=== PATIENT | female | born 1950 | race Caucasian/White ===

== ENCOUNTER 2023-09-14 10:28 | Inpatient (IN) | payer MEDICARE, BC ==
[~2023-09-14] VITALS: Ht 162.6 cm; Wt 58.3 kg
[2023-09-14] MEDS ORDERED: MULT-754 PO (11:49)
[2023-09-14] MEDS ORDERED: DONE10TA44 PO (11:49)
[2023-09-14] MEDS ORDERED: QUET25TA PO (11:49)
[2023-09-14] MEDS ORDERED: DIPH25TA25 PO (11:49)
[2023-09-14] MEDS ORDERED: VIT1CAPS9 PO (11:49)
[2023-09-14] MEDS ORDERED: ATOR20TA PO (11:49)
[2023-09-14] MEDS ORDERED: LEVO50TA PO (11:49)
[2023-09-14] MEDS ORDERED: CHOL200059 PO (11:49)
[2023-09-14] MEDS ORDERED: MAG HYDROX/AL HYDROX/SIMETH 30 ML UDC PO PRN (12:00)
[2023-09-14] MEDS ORDERED: ACETAMINOPHEN 325 MG TABLET PO PRN (12:00)
[2023-09-14] MEDS ORDERED: MAGNESIUM HYDROXIDE 30 ML UDC PO PRN (12:00)
[2023-09-14 16:00] VITALS: BP 134/83; TEMP 98.7; O2SAT 98
[2023-09-14] MEDS: LORAZEPAM 1 MG TABLET PO PRN (17:27)
[2023-09-14 20:17] VITALS: BP 103/68; TEMP 98; O2SAT 98
[2023-09-14] MEDS: DONEPEZIL 5 MG TABLET PO SCH (21:26)
[2023-09-14] MEDS ORDERED: ATORVASTATIN 10 MG TABLET ONE (21:41)
[2023-09-14] MEDS: ATORVASTATIN 10 MG TABLET PO SCH (21:44)
[2023-09-15 08:00] VITALS: BP 120/61; TEMP 97.9; O2SAT 95
[2023-09-15 08:09] LABS: CHOLESTEROL 174 mg/dL (<200); HDL CHOLESTEROL 102 mg/dL (40-60); LDL 57 mg/dL (0-99); TRIGLYCERIDES 33 mg/dL (30-150)
[2023-09-15] MEDS: MULTIVITAMINS,THERAGRAN 1 UDTAB TABLET PO SCH (08:16)
[2023-09-15] MEDS: LEVOTHYROXINE SODIUM 50 MCG TABLET PO SCH (08:16)
[2023-09-15] MEDS: CHOLECALCIFEROL 1,000 UNIT TABLET (VIT D3) PO SCH (08:17)
[2023-09-15 09:09] LABS: ALBUMIN 3.6 g/dL (3.4-5.0); BILIRUBIN,TOTAL 0.5 mg/dL (0.2-1.0); CALCIUM, SERUM 9.7 mg/dL (8.5-10.1); CREATININE 0.7 mg/dL (0.6-1.3); POTASSIUM 3.5 mmol/L (3.5-5.1); TOTAL PROTEIN, SERUM 7.1 g/dL (6.4-8.2)
[2023-09-15 16:00] VITALS: BP 116/76; TEMP 98; O2SAT 95
[2023-09-15] MEDS: MEMANTINE HCL 5 MG TABLET PO SCH ×2 (17:00→17:04)
[2023-09-15 20:00] VITALS: BP 123/81; TEMP 98.3; O2SAT 97
[2023-09-15] MEDS: ATORVASTATIN 10 MG TABLET PO SCH (21:22)
[2023-09-15] MEDS: DONEPEZIL 5 MG TABLET PO SCH (21:22)
[2023-09-15] MEDS: QUETIAPINE FUMARATE 25 MG TABLET PO SCH (21:22)
[2023-09-16 08:00] VITALS: BP 131/67; TEMP 97.7; O2SAT 96
[2023-09-16] MEDS: MULTIVITAMINS,THERAGRAN 1 UDTAB TABLET PO SCH (09:25)
[2023-09-16] MEDS: MEMANTINE HCL 5 MG TABLET PO SCH ×2 (09:26→18:00)
[2023-09-16] MEDS: LEVOTHYROXINE SODIUM 50 MCG TABLET PO SCH (09:26)
[2023-09-16] MEDS: CHOLECALCIFEROL 1,000 UNIT TABLET (VIT D3) PO SCH (09:26)
[2023-09-16 16:00] VITALS: BP 132/70; TEMP 97.6; O2SAT 95
[2023-09-16 20:13] VITALS: BP 127/72; TEMP 97.7; O2SAT 99
[2023-09-16] MEDS: ATORVASTATIN 10 MG TABLET PO SCH (22:02)
[2023-09-16] MEDS: QUETIAPINE FUMARATE 25 MG TABLET PO SCH (22:02)
[2023-09-16] MEDS: DONEPEZIL 5 MG TABLET PO SCH (22:02)
[2023-09-17 08:00] VITALS: BP 130/75; TEMP 97.6; O2SAT 95
[2023-09-17] MEDS: LEVOTHYROXINE SODIUM 50 MCG TABLET PO SCH (08:28)
[2023-09-17] MEDS: MEMANTINE HCL 5 MG TABLET PO SCH ×2 (08:28→16:36)
[2023-09-17] MEDS: CHOLECALCIFEROL 1,000 UNIT TABLET (VIT D3) PO SCH (08:29)
[2023-09-17] MEDS: MULTIVITAMINS,THERAGRAN 1 UDTAB TABLET PO SCH (08:29)
[2023-09-17 16:00] VITALS: BP 118/73; TEMP 98.4; O2SAT 100
[2023-09-17 20:00] VITALS: BP 136/81; TEMP 97.8; O2SAT 98
[2023-09-17] MEDS: QUETIAPINE FUMARATE 25 MG TABLET PO SCH (22:02)
[2023-09-17] MEDS: ATORVASTATIN 10 MG TABLET PO SCH (22:02)
[2023-09-17] MEDS: DONEPEZIL 5 MG TABLET PO SCH (22:02)
[2023-09-18] MEDS ORDERED: Z GUARD REMEDY 4 OZ OINT TP PRN
[2023-09-18] MEDS: ZOLPIDEM TARTRATE 5 MG TABLET PO PRN (01:29)
[2023-09-18 08:00] VITALS: BP 112/88; TEMP 97.8; O2SAT 96
[2023-09-18] MEDS: LEVOTHYROXINE SODIUM 50 MCG TABLET PO SCH (08:07)
[2023-09-18] MEDS: MEMANTINE HCL 5 MG TABLET PO SCH ×2 (08:07→16:08)
[2023-09-18] MEDS: MULTIVITAMINS,THERAGRAN 1 UDTAB TABLET PO SCH (08:07)
[2023-09-18] MEDS: CHOLECALCIFEROL 1,000 UNIT TABLET (VIT D3) PO SCH (08:07)
[2023-09-18 16:00] VITALS: BP 141/75; TEMP 97.7; O2SAT 96
[2023-09-18 21:09] VITALS: BP 113/58; TEMP 97.8; O2SAT 100
[2023-09-18] MEDS: ATORVASTATIN 10 MG TABLET PO SCH (21:17)
[2023-09-18] MEDS: DONEPEZIL 5 MG TABLET PO SCH (21:17)
[2023-09-18] MEDS: QUETIAPINE FUMARATE 25 MG TABLET PO SCH (21:17)
[2023-09-19 08:00] VITALS: BP 116/76; TEMP 98.2; O2SAT 100
[2023-09-19] MEDS: LEVOTHYROXINE SODIUM 50 MCG TABLET PO SCH (08:13)
[2023-09-19] MEDS: MULTIVITAMINS,THERAGRAN 1 UDTAB TABLET PO SCH (08:13)
[2023-09-19] MEDS: CHOLECALCIFEROL 1,000 UNIT TABLET (VIT D3) PO SCH (08:13)
[2023-09-19] MEDS: MEMANTINE HCL 5 MG TABLET PO SCH ×2 (08:13→16:06)
[2023-09-19 16:00] VITALS: BP 140/71; TEMP 98.4; O2SAT 99
[2023-09-19] MEDS: LORAZEPAM 1 MG TABLET PO PRN (18:15)
[2023-09-19 19:42] VITALS: BP 111/74; TEMP 98; O2SAT 99
[2023-09-19] MEDS: ATORVASTATIN 10 MG TABLET PO SCH (21:13)
[2023-09-19] MEDS: QUETIAPINE FUMARATE 25 MG TABLET PO SCH (21:14)
[2023-09-19] MEDS: DONEPEZIL 5 MG TABLET PO SCH (21:14)
[2023-09-20] MEDS: ZOLPIDEM TARTRATE 5 MG TABLET PO PRN (01:42)
[2023-09-20 08:00] VITALS: BP 136/61; TEMP 97.9; O2SAT 99
[2023-09-20] MEDS: LEVOTHYROXINE SODIUM 50 MCG TABLET PO SCH (08:06)
[2023-09-20] MEDS: CHOLECALCIFEROL 1,000 UNIT TABLET (VIT D3) PO SCH (08:14)
[2023-09-20] MEDS: MEMANTINE HCL 5 MG TABLET PO SCH ×2 (08:14→16:15)
[2023-09-20] MEDS: MULTIVITAMINS,THERAGRAN 1 UDTAB TABLET PO SCH (08:15)
[2023-09-20 16:00] VITALS: BP 119/80; TEMP 98; O2SAT 100
[2023-09-20 21:19] VITALS: BP 104/65; TEMP 97.9; O2SAT 99
[2023-09-20] MEDS: DONEPEZIL 5 MG TABLET PO SCH (21:29)
[2023-09-20] MEDS: QUETIAPINE FUMARATE 25 MG TABLET PO SCH (21:29)
[2023-09-20] MEDS: ATORVASTATIN 10 MG TABLET PO SCH (21:29)
[2023-09-21 08:00] VITALS: TEMP 97.9; O2SAT 100
[2023-09-21] MEDS: ENSURE ENLIVE 237 ML LIQUID (VANILLA) PO SCH (08:25)
[2023-09-21] MEDS: LEVOTHYROXINE SODIUM 50 MCG TABLET PO SCH (08:25)
[2023-09-21] MEDS: MEMANTINE HCL 5 MG TABLET PO SCH ×2 (08:41→16:04)
[2023-09-21] MEDS: MULTIVITAMINS,THERAGRAN 1 UDTAB TABLET PO SCH (08:41)
[2023-09-21] MEDS: CHOLECALCIFEROL 1,000 UNIT TABLET (VIT D3) PO SCH (08:41)
[2023-09-21 16:00] VITALS: BP 100/60; TEMP 98.4; O2SAT 99
[2023-09-21 20:19] VITALS: BP 104/70; TEMP 98.2; O2SAT 99
[2023-09-21] MEDS: QUETIAPINE FUMARATE 25 MG TABLET PO SCH (21:26)
[2023-09-21] MEDS: DONEPEZIL 5 MG TABLET PO SCH (21:26)
[2023-09-21] MEDS: ATORVASTATIN 10 MG TABLET PO SCH (21:26)
[2023-09-21] MEDS: ZOLPIDEM TARTRATE 5 MG TABLET PO PRN (23:51)
[2023-09-22 08:00] VITALS: BP 107/71; TEMP 97.9; O2SAT 97
[2023-09-22] MEDS: CHOLECALCIFEROL 1,000 UNIT TABLET (VIT D3) PO SCH (08:13)
[2023-09-22] MEDS: MULTIVITAMINS,THERAGRAN 1 UDTAB TABLET PO SCH (08:13)
[2023-09-22] MEDS: MEMANTINE HCL 5 MG TABLET PO SCH ×2 (08:13→16:56)
[2023-09-22] MEDS: LEVOTHYROXINE SODIUM 50 MCG TABLET PO SCH (08:13)
[2023-09-22] MEDS: ENSURE ENLIVE 237 ML LIQUID (VANILLA) PO SCH (08:14)
[2023-09-22 16:00] VITALS: BP 124/77; TEMP 98.1; O2SAT 100
[2023-09-22 20:00] VITALS: BP 113/61; TEMP 98; O2SAT 99
[2023-09-22] MEDS: ATORVASTATIN 10 MG TABLET PO SCH (21:34)
[2023-09-22] MEDS: QUETIAPINE FUMARATE 25 MG TABLET PO SCH (21:34)
[2023-09-22] MEDS: DONEPEZIL 5 MG TABLET PO SCH (21:34)
[2023-09-23] MEDS: ZOLPIDEM TARTRATE 5 MG TABLET PO PRN (02:50)
[2023-09-23 08:00] VITALS: BP 114/72; TEMP 98.4; O2SAT 94
[2023-09-23] MEDS: MULTIVITAMINS,THERAGRAN 1 UDTAB TABLET PO SCH (08:47)
[2023-09-23] MEDS: MEMANTINE HCL 5 MG TABLET PO SCH ×2 (08:47→16:25)
[2023-09-23] MEDS: CHOLECALCIFEROL 1,000 UNIT TABLET (VIT D3) PO SCH (08:47)
[2023-09-23] MEDS: LEVOTHYROXINE SODIUM 50 MCG TABLET PO SCH (08:47)
[2023-09-23] MEDS: ENSURE ENLIVE 237 ML LIQUID (VANILLA) PO SCH (08:48)
[2023-09-23 16:00] VITALS: BP 120/71; TEMP 97.7; O2SAT 95
[2023-09-23 20:00] VITALS: BP 123/71; TEMP 98.4; O2SAT 98
[2023-09-23] MEDS: ATORVASTATIN 10 MG TABLET PO SCH (21:36)
[2023-09-23] MEDS: DONEPEZIL 5 MG TABLET PO SCH (21:36)
[2023-09-23] MEDS: QUETIAPINE FUMARATE 25 MG TABLET PO SCH (21:36)
[2023-09-24 07:11] LABS: BASOPHILS % (AUTO) 0.5 % (0.0-2.0); EOSINOPHILS # (AUTO) 0.2 K/uL (0.0-0.7); HEMATOCRIT 37 % (33-45); HEMOGLOBIN 12.4 g/dL (11.5-14.8); LYMPHOCYTES # (AUTO) 1.5 K/uL (0.8-4.8); LYMPHOCYTES % (AUTO) 24.1 % (20.0-44.0); MEAN CORPUSCULAR HEMOGLOBIN 32 PG (26.0-33.0); MEAN CORPUSCULAR HGB CONC 34 g/dl (31.0-36.0); MEAN CORPUSCULAR VOLUME 94 fL (82-100); MONOCYTES # (AUTO) 0.7 K/uL (0.1-1.30); MONOCYTES % (AUTO) 11.7 % (2.0-12.0); NEUTROPHILS # (AUTO) 3.7 K/uL (1.8-8.9); NEUTROPHILS % (AUTO) 60.7 % (43.0-81.0); PLATELET COUNT (AUTO) 279 K/uL (150-450); RED BLOOD CELL COUNT(AUTO) 3.88 MIL/uL (4.0-5.2); RED CELL DISTRIBUTION WIDTH 13.8 % (11.5-15.0); WHITE BLOOD COUNT (AUTO) 6.1 K/uL (4.3-11.0)
[2023-09-24 07:43] LABS: THYROID STIMULATING HORMONE 1.904 uIU/mL (0.358-3.74)
[2023-09-24 07:53] LABS: CALCIUM, SERUM 9.2 mg/dL (8.5-10.1); CREATININE 0.6 mg/dL (0.6-1.3); MAGNESIUM 2.3 mg/dL (1.8-2.4); PHOSPHORUS 3.2 mg/dL (2.5-4.9); POTASSIUM 3.7 mmol/L (3.5-5.1)
[2023-09-24 08:00] VITALS: BP 106/67; TEMP 97.6; O2SAT 100
[2023-09-24] MEDS: MEMANTINE HCL 5 MG TABLET PO SCH ×2 (08:18→16:41)
[2023-09-24] MEDS: CHOLECALCIFEROL 1,000 UNIT TABLET (VIT D3) PO SCH (08:18)
[2023-09-24] MEDS: LEVOTHYROXINE SODIUM 50 MCG TABLET PO SCH (08:19)
[2023-09-24] MEDS: ENSURE ENLIVE 237 ML LIQUID (VANILLA) PO SCH (08:19)
[2023-09-24] MEDS: MULTIVITAMINS,THERAGRAN 1 UDTAB TABLET PO SCH (08:19)
[2023-09-24] MEDS: PANTOPRAZOLE 40 MG TABLET.DR PO SCH (13:08)
[2023-09-24 16:00] VITALS: BP 101/60; TEMP 98.1; O2SAT 98
[2023-09-24 20:00] VITALS: BP 115/67; TEMP 98.1; O2SAT 98
[2023-09-24] MEDS: DONEPEZIL 5 MG TABLET PO SCH (22:10)
[2023-09-24] MEDS: QUETIAPINE FUMARATE 25 MG TABLET PO SCH (22:10)
[2023-09-24] MEDS: ATORVASTATIN 10 MG TABLET PO SCH (22:10)
[2023-09-25 08:00] VITALS: BP 118/85; TEMP 97.7; O2SAT 99
[2023-09-25] MEDS: LEVOTHYROXINE SODIUM 50 MCG TABLET PO SCH (08:13)
[2023-09-25] MEDS: CHOLECALCIFEROL 1,000 UNIT TABLET (VIT D3) PO SCH (08:13)
[2023-09-25] MEDS: PANTOPRAZOLE 40 MG TABLET.DR PO SCH (08:13)
[2023-09-25] MEDS: ENSURE ENLIVE 237 ML LIQUID (VANILLA) PO SCH (08:14)
[2023-09-25] MEDS: MEMANTINE HCL 5 MG TABLET PO SCH ×2 (08:14→16:15)
[2023-09-25] MEDS: MULTIVITAMINS,THERAGRAN 1 UDTAB TABLET PO SCH (08:14)
[2023-09-25 16:00] VITALS: BP 108/75; TEMP 97.9; O2SAT 100
[2023-09-25 20:52] VITALS: BP 121/69; TEMP 98.4; O2SAT 96
[2023-09-25] MEDS: QUETIAPINE FUMARATE 25 MG TABLET PO SCH (21:07)
[2023-09-25] MEDS: ATORVASTATIN 10 MG TABLET PO SCH (21:07)
[2023-09-25] MEDS: DONEPEZIL 5 MG TABLET PO SCH (21:07)
[2023-09-25] MEDS: ZOLPIDEM TARTRATE 5 MG TABLET PO PRN (21:56)
[2023-09-26] MEDS: LORAZEPAM 1 MG TABLET PO PRN (00:57)
[2023-09-26 08:00] VITALS: BP 121/80; TEMP 98.6; O2SAT 98
[2023-09-26] MEDS: LEVOTHYROXINE SODIUM 50 MCG TABLET PO SCH (08:06)
[2023-09-26] MEDS: PANTOPRAZOLE 40 MG TABLET.DR PO SCH (08:06)
[2023-09-26] MEDS: MEMANTINE HCL 5 MG TABLET PO SCH ×2 (08:06→16:42)
[2023-09-26] MEDS: MULTIVITAMINS,THERAGRAN 1 UDTAB TABLET PO SCH (08:06)
[2023-09-26] MEDS: CHOLECALCIFEROL 1,000 UNIT TABLET (VIT D3) PO SCH (08:07)
[2023-09-26] MEDS: ENSURE ENLIVE 237 ML LIQUID (VANILLA) PO SCH (08:11)
[2023-09-26 16:00] VITALS: BP 109/69; TEMP 98.8; O2SAT 98
[2023-09-26 20:39] VITALS: BP 143/82; TEMP 98.7; O2SAT 98
[2023-09-26] MEDS: ATORVASTATIN 10 MG TABLET PO SCH (21:25)
[2023-09-26] MEDS: DONEPEZIL 5 MG TABLET PO SCH (21:25)
[2023-09-26] MEDS: QUETIAPINE FUMARATE 25 MG TABLET PO SCH (21:25)
[2023-09-27 08:00] VITALS: BP 118/57; TEMP 97.7; O2SAT 97
[2023-09-27] MEDS: PANTOPRAZOLE 40 MG TABLET.DR PO SCH (09:19)
[2023-09-27] MEDS: MEMANTINE HCL 5 MG TABLET PO SCH (09:19)
[2023-09-27] MEDS: LEVOTHYROXINE SODIUM 50 MCG TABLET PO SCH (09:19)
[2023-09-27] MEDS: MULTIVITAMINS,THERAGRAN 1 UDTAB TABLET PO SCH (09:19)
[2023-09-27] MEDS: CHOLECALCIFEROL 1,000 UNIT TABLET (VIT D3) PO SCH (09:20)
[2023-09-27] MEDS: ENSURE ENLIVE 237 ML LIQUID (VANILLA) PO SCH (09:20)
== END 2023-09-27 15:00 | DRG 885 ==
LOC: GPS 11:10
PROVIDERS: ADMIT Psychiatry & Neurology Psychiatry; ATTEND Internal Medicine
DX: F29 Unspecified psychosis not due to a substance or known physiological condition (principal); F03.92 Unspecified dementia, unspecified severity, with psychotic disturbance; F03.93 Unspecified dementia, unspecified severity, with mood disturbance; F03.918 Unspecified dementia, unspecified severity, with other behavioral disturbance; E03.9 Hypothyroidism, unspecified; E78.5 Hyperlipidemia, unspecified; I10 Essential (primary) hypertension; Z20.822 Contact with and (suspected) exposure to COVID-19; F39 Unspecified mood [affective] disorder; Z73.6 Limitation of activities due to disability; Z79.899 Other long term (current) drug therapy
CPT/HCPCS: 36415; 71045-TC; 74018; 80048-TC; 80053-TC; 80061-TC; 83735-TC; 84100-TC; 84443-TC; 85025-TC; 97110-TC; 97112-TC; 97116-TC; 97530-TC